=== PATIENT | female | born 1965 | race Caucasian/White ===

== ENCOUNTER 2019-11-17 07:37 | Outpatient (CLI) | payer MEDICAID, SELFPAY ==
--- NOTE | 2019-11-17 07:41 | MM_ITS ---
WS: [id number] BILATERAL DIGITAL SCREENING MAMMOGRAM WITH CAD CLINICAL INFORMATION: SCREENING HISTORY: Screening mammogram. No current complaints. COMPARISON: October 29, 2018 TECHNIQUE: Bilateral CC and MLO. FINDINGS: The breast are composed of extremely dense tissue, which can limit the detection of small underlying mass lesions. Stable Dystrophic calcifications right greater than left. No suspicious focal mass, asy mmetry, calcifications, or architectural distortion. No evidence of malignancy. MM/[id number] IMPRESSION: BI-RADS: 2-Benign FOLLOW UP: 1 Year Follow-up Recommend return to annual screening mammography.
== END 2019-11-17 07:38 | disposition home or self-care (01) ==
LOC: RADSHAW 07:40
PROVIDERS: Family Provider Family Medicine; Visit Provider Family Medicine
DX: Z12.31 Encounter for screening mammogram for malignant neoplasm of breast (principal)
CPT/HCPCS: 77067

== ENCOUNTER 2020-12-24 07:49 | Outpatient (CLI) | payer MEDICAID, SELFPAY ==
--- NOTE | 2020-12-24 07:52 | MM_ITS ---
WS: [id number] Exam: [id number] Date/Time of Exam: 12/24/2020 7:52 AM Reason For Exam: SCREENING VIEWS: MLO and CC views both breasts. Comparison made with prior exam of 10/28/2017, 10/29/2018, and 11/17/2019.. Findings: There was no sign of mass, architectural distortion or suspicious calcification in either breast. He terogeneously dense MM/[place] [id number] Impression: BI-RADS: 2-Benign FOLLOW-UP: 1 Year Follow-up This mammogram was also analyzed by the Computer Aided Detection System [employer].
== END 2020-12-24 07:50 | disposition home or self-care (01) ==
LOC: RADSHAW 07:51
PROVIDERS: PCP Family Medicine; Visit Provider Family Medicine
DX: Z12.31 Encounter for screening mammogram for malignant neoplasm of breast (principal)
CPT/HCPCS: 77067

== ENCOUNTER 2023-03-03 13:25 | Outpatient (CLI) | payer MEDICAID, SELFPAY ==
--- NOTE | 2023-03-03 13:32 | MM_ITS ---
WS: [id number] BILATERAL 2D DIGITAL SCREENING MAMMOGRAPHY WITH CAD CLINICAL INFORMATION: SCREENING HISTORY: Screening mammogram. No current complaints. COMPARISON: 2020 TECHNIQUE: Bilateral CC and MLO views. FINDINGS: The breasts are composed of heterogeneous fibroglandular density tissue, which can limit the detectio n of small underlying mass lesions. No suspicious mass, asymmetry, calcifications, or architectural d istortion. No evidence of malignancy. Similar-appearing dystrophic calcifications RIGHT breast. Punct ate and lucent centered calcifications. Stable punctate clustered calcifications LEFT breast. MM/[id number] IMPRESSION: BI-RADS: 2-Benign FOLLOW UP: 1 Year Follow-up Recommend return to annual screening mammography.
== END 2023-03-03 13:26 | disposition home or self-care (01) ==
PROVIDERS: PCP Family Medicine; Visit Provider Family Medicine
DX: Z12.31 Encounter for screening mammogram for malignant neoplasm of breast (principal)
CPT/HCPCS: 77067

== ENCOUNTER 2024-03-17 15:30 | Outpatient (CLI) | payer MEDICAID, SELFPAY ==
--- NOTE | 2024-03-17 15:53 | MM_ITS ---
WS: [id number] RIGHT DIGITAL BILATERAL 2D MAMMOGRAPHY WITH CAD. HISTORY: SCREEN COMPARISON: 03/03/2023, 12/24/2020 Technique: CC, MLO and ML views. Breast composition: The breasts are extremely dense, which lowers the sensitivity of mammography. Dave ign calcifications in each breast. MM/[id number] IMPRESSION: BI-RADS: 2-Benign FOLLOW UP: 1 Year Follow-up
== END 2024-03-17 15:31 | disposition home or self-care (01) ==
LOC: RAD 15:34
PROVIDERS: PCP Family Medicine; Visit Provider Family Medicine
DX: Z12.31 Encounter for screening mammogram for malignant neoplasm of breast (principal); R92.333 Mammographic heterogeneous density, bilateral breasts; R92.1 Mammographic calcification found on diagnostic imaging of breast
CPT/HCPCS: 77063; 77067

== ENCOUNTER 2025-03-22 08:53 | Outpatient (CLI) | payer MEDICARE, MEDICAID, SELFPAY ==
--- NOTE | 2025-03-22 09:00 | MM_ITS ---
WS: [id number] BILATERAL DIGITAL MAMMOGRAPHY WITH CAD. HISTORY: SCREENING COMPARISON: 03/17/2024, 03/03/2023 Technique: CC and MLO. Breast composition: The breasts are extremely dense, which lowers the sensitivity of mammography. Extremely dense breast tissue with numerous bilateral benign calcifications. There are a few additional smaller punctate calcifications which are not grouped or progressing. No architectural distortion. MM/[id number] IMPRESSION: BI-RADS: 2 - Benign FOLLOW UP: 1 Year Follow-up
== END 2025-03-22 08:54 | disposition home or self-care (01) ==
PROVIDERS: PCP Family Medicine; Visit Provider Internal Medicine
DX: Z12.31 Encounter for screening mammogram for malignant neoplasm of breast (principal); R92.343 Mammographic extreme density, bilateral breasts; R92.1 Mammographic calcification found on diagnostic imaging of breast; R92.8 Other abnormal and inconclusive findings on diagnostic imaging of breast
CPT/HCPCS: 77067